=== PATIENT | male | born 1990 | race Caucasian/White ===

== ENCOUNTER 2016-11-18 23:00 | Inpatient (IN) | payer OTHER ==
--- NOTE | ~2016-11-18 | DS ---
Unit #: [id number] #: [id number] Patient: MIGUEL DOSHI [id number] [facility] [address] [place] [address] [id number] MR#: [id number] NAME: MIGUEL DOSHI ROOM: [facility] Age: 26 Sex: M Admission Date: 11/19/2016 : 1990 Discharge Date: 11/21/2016 Attending Physician: Antony Valenzuela M.D. Primary Care Physician: Primary Care Physician No DISCHARGE SUMMARY IDENTIFYING DATA Mr. Doshi is a 26-year-old white male who was self-referred to the hospital. DISCHARGE DIAGNOSES Psychiatric: Opioid dependence, moderate and acute withdrawals; opioid-induced mood disorder. Medical: Gastroesophageal reflux disease. Stressors: Moderate psychosocial stressors. HISTORY OF PRESENT ILLNESS Please see initial psychiatric evaluation for details. PAST PSYCHIATRIC HISTORY Please see initial psychiatric evaluation for details. PAST MEDICAL HISTORY Please see initial psychiatric evaluation for details. HOSPITAL COURSE The patient was admitted to the adult chemical dependency and psychiatric unit at [facility] and was oriented to the hospital environment. Routine p.r.n. medications were initiated and he was started back on his home medications, and opioid detox protocol was initiated as well. He was taking the medications regularly and was tolerating them fairly well and was able to show a decent therapeutic response with improvement in depression and anxiety, and as such, it was decided that he will be discharged home and will continue treatment on an outpatient basis. DISCHARGE CONDITION Stable. PROGNOSIS Fair. Dictated by... Vijay Victoria/krisl TD: 12/06/2016 00:13 JOB #: [id number] Unit #: [id number] #: [id number] Patient: MIGUEL DOSHI DISCHARGE SUMMARY Page 1 of 1 X Antony Valenzuela MD X DISCHARGE SUMMARY
--- NOTE | ~2016-11-18 | PA ---
Unit #: [id number] #: [id number] Patient: MIGUEL DOSHI [id number] [place] [address] [id number] MR#: [id number] NAME: MIGUEL DOSHI ROOM: P203 Age: 26 Sex: M Admission Date: 11/19/2016 : 1990 Date of Assessment: Attending Physician: Antony Valenzuela M.D. Admitting Physician: Antony Valenzuela M.D. PSYCHIATRIC ASSESSMENT DATE OF SERVICE 11/19/2016. IDENTIFYING DATA Mr. Doshi is a 29-year-old single white male, who is a resident of [place], [place], and was self-referred to the hospital on a voluntary basis. CHIEF COMPLAINT "I use 1 g of IV heroin daily." HISTORY OF PRESENT ILLNESS Mr. Doshi is a 29-year-old white male with history of opioid dependence, who was self-referred to the hospital wanting to get detox from IV heroin. Reports that he has been using on a daily basis for the past 4 to 5 months and he has been trying to do enough heroin to overdose and suicide attempt. Reports that he wants to stop using or he wants to and that he takes 10 mg Percocet or Lortab whenever he cannot get the heroin and reports he uses 20 dollars worth of IV meth on daily basis and does report using IV heroin earlier today and was seen to be anxious, withdrawn, unkempt, disheveled, and does report increasing depression, poor energy level, psychomotor retardation, feelings of hopelessness and helplessness, and suicidal ideations with intent and plan. SUBSTANCE ABUSE HISTORY The patient reports history of experimentation with alcohol, though IV heroin has been his drug of choice and he also has been using IV methamphetamine quite regularly. PAST PSYCHIATRIC HISTORY The patient has had history of inpatient chemical dependency treatment in the past. Review of the medical records indicate currently he is not active in any treatment program, is not seeing a psychiatrist, and is not taking any psychotropic medications. PAST MEDICAL HISTORY Gastroesophageal reflux disease. ALLERGIES No known medication allergies. PERSONAL AND SOCIAL HISTORY A 29-year-old white male, who reports that he is single, unemployed, and essentially homeless and describes having poor social support system. Unit #: [id number] #: [id number] Patient: MIGUEL DOSHI MENTAL STATUS EXAMINATION Young white male who was casually dressed with fair personal hygiene, appears to be in no acute distress or discomfort. He was awake and alert on interaction with intact orientation to time, place, and person. His mood was anxious and depressed with a congruent affect. His speech was slow and restricted in content. His thought processes were disorganized with some looseness of associations and suicidal ideations. His insight and judgment remain significantly impaired. DIAGNOSTIC IMPRESSION Psychiatric: Major depressive disorder, recurrent, moderate, without psychotic features; opioid dependence, moderate and acute withdrawals. Medical: Gastroesophageal reflux disease. Stressors: Moderate psychosocial stressors. TREATMENT PLAN 1. The patient has presented with history of substance abuse and mood disorder, and has been decompensating and will need inpatient hospitalization for safety and stabilization. We will start him on opioid detox protocol. We will closely monitor for any worsening withdrawal symptoms. 2. Supportive therapy was provided to the patient. 3. Safe, structured, and nourishing environment will be provided. ESTIMATED LENGTH OF STAY 5 to 7 days. ABILITY TO HELP SELF Limited. WILLINGNESS TO HELP SELF The patient appears to be willing to help self. STRENGTHS 1. Communicative. 2. Cooperative. PROBLEMS 1. Chronic dysphoric symptoms. 2. Chronic chemical dependency. 3. Poor social support system. DISCHARGE CRITERIA This will be contingent upon the patient's ability to go through detox without having any significant withdrawal symptoms as well as his ability to stay safe to himself, particularly after discharge from the hospital. Dictated by... Antony Valenzuela M.D. GORGE/emily TD: 11/19/2016 22:25 JOB #: [id number] Unit #: [id number] #: [id number] Patient: MIGUEL DOSHI PSYCHIATRIC ASSESSMENT Page 1 of 1 X Antony Valenzuela MD X PSYCHIATRIC ASSESSMENT
--- NOTE | ~2016-11-18 | PN ---
Unit #: [id number] #: [id number] Patient: MIGUEL VICTORIA [id number] [facility] [address] [place] [address] [id number] I MR#: [id number] NAME: MIGUEL VICTORIA ROOM: P175 Age: 26 Sex: M Admission Date: 11/19/2016 : 1990 Attending Physician: Antony Valenzuela M.D. Admitting Physician: Antony Valenzueal M.D. Primary Care Physician: Primary Care Physician Lanie GALLOWAY NOTES DATE 11/20/2016 DISCUSSION Mr. Victoria is a 26-year-old, white male who was seen today and chart was reviewed and case was discussed with the staff. He has been anxious, withdrawn and has been showing very negative attitude towards treatment and has not been showing good insight into his situation and good motivation towards treatment and has been wanting to leave against medical advice after he came in with intensive history of IV use and a plan to overdose on heroin to kill himself and now he states that he just needed a couple of days to sleep off it someplace and as such remains a poor historian and remains a poor prognosis. Dictated by... Vijay Victoria/cricket TD: 11/21/2016 21:19 JOB #: [id number] VENESSA GALLOWAY NOTES Page 1 of 1 X Antony Valenzuela MD PROGRESS NOTE
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
[2016-11-20 12:33] LABS: URINE APPEARANCE CLEAR; URINE BILIRUBIN NEG (NEG); URINE BLOOD NEG (NEG); URINE COLOR YELLOW; URINE GLUCOSE NEG (NEG); URINE KETONE NEG (NEG); URINE LEUKOCYTE ESTERASE NEG (NEG); URINE NITRATE NEG (NEG); URINE PH 7.5 (5-8); URINE PROTEIN NEG (NEG); URINE UROBILINOGEN 0.2 MG/DL (NEG)
[2016-11-20 13:50] LABS: AMPHETAMINE POS (NEG); BARBITURATES NEG (NEG); BENZODIAZEPINES NEG (NEG); COCAINE NEG (NEG); MARIJUANA NEG (NEG); OPIATES POS (NEG); TRICYCLIC ANTIDEPRESSANTS NEG (NEG); U METHADONE NEG (NEG)
== END 2016-11-21 08:25 | disposition home or self-care (01) | DRG 885 ==
LOC: P2S 11-19 02:25 → EDBD 11-19 02:25 → POF 11-20 14:21 → P1E 11-20 14:22
PROVIDERS: Psychiatry & Neurology Psychiatry
PROC: HZ2ZZZZ Detoxification Services for Substance Abuse Treatment (ICD-10-PCS; principal; 2016-11-19)
DX: F33.1 Major depressive disorder, recurrent, moderate (principal); F11.23 Opioid dependence with withdrawal; K21.9 Gastro-esophageal reflux disease without esophagitis; F17.210 Nicotine dependence, cigarettes, uncomplicated
CPT/HCPCS: 80307; 81003